=== PATIENT | female | born 1990 | race Two or more races ===

== ENCOUNTER → 2017-02-20 | Outpatient (CLI) | payer OTHER ==
[~2017-02-20] VITALS: Ht 152.4 cm; Wt 66.7 kg
[~2017-02-20] MED LIST: CEFADROXIL500 MG PO; PROTONIX40 MG; PROTONIX40 MG PO
== END | disposition home or self-care (01) ==
LOC: PPHC 12:43
DX: K29.60 Other gastritis without bleeding (principal)

== ENCOUNTER 2017-02-25 08:47 | Outpatient (CLI) | payer OTHER | END 2017-02-25 08:53 | disposition home or self-care (01) | LOC: SONOGRAMA 08:47 | DX: N83.209 Unspecified ovarian cyst, unspecified side (principal) ==

== ENCOUNTER → 2017-03-04 17:36 | Outpatient (CLI) | payer OTHER | END | disposition home or self-care (01) | LOC: ADM 13:15 → RAD 13:15 | DX: M99.01 Segmental and somatic dysfunction of cervical region (principal); M99.03 Segmental and somatic dysfunction of lumbar region; M99.04 Segmental and somatic dysfunction of sacral region ==

== ENCOUNTER → 2017-04-21 | Outpatient (CLI) | payer OTHER ==
[~2017-04-21] VITALS: Ht 152.4 cm; Wt 68.0 kg
== END | disposition home or self-care (01) ==
LOC: PPHC 10:25
DX: K21.9 Gastro-esophageal reflux disease without esophagitis (principal)

== ENCOUNTER → 2017-05-05 | Outpatient (CLI) | payer OTHER ==
[~2017-05-05] VITALS: Ht 152.4 cm; Wt 68.9 kg
== END | disposition home or self-care (01) ==
LOC: PPHC 09:56
DX: R06.02 Shortness of breath (principal)

== ENCOUNTER → 2017-05-07 07:59 | Outpatient (CLI) | payer OTHER | END | disposition home or self-care (01) | LOC: ADM 07:00 → RAD 07:00 | DX: R05 Cough (principal) ==

== ENCOUNTER → 2017-05-07 08:07 | Outpatient (CLI) | payer OTHER | END | disposition home or self-care (01) | LOC: LAB 08:07 → ADM 14:30 | DX: M81.0 Age-related osteoporosis without current pathological fracture (principal); E03.8 Other specified hypothyroidism; D63.8 Anemia in other chronic diseases classified elsewhere; N30.90 Cystitis, unspecified without hematuria; E78.00 Pure hypercholesterolemia, unspecified; R82.79 Other abnormal findings on microbiological examination of urine ==

== ENCOUNTER 2017-05-07 08:18 | Outpatient (CLI) | payer OTHER | END 2017-05-07 08:31 | disposition home or self-care (01) | LOC: SONOGRAMA 08:18 | DX: N60.19 Diffuse cystic mastopathy of unspecified breast (principal) ==

== ENCOUNTER → 2017-05-12 17:59 | Outpatient (CLI) | payer OTHER | END | disposition home or self-care (01) | LOC: LAB 08:45 → ADM 08:45 → LAB 17:59 | DX: E03.8 Other specified hypothyroidism (principal) ==

== ENCOUNTER → 2017-05-12 | Outpatient (CLI) | payer OTHER | END | disposition home or self-care (01) | LOC: PPHC 09:34 | DX: E03.8 Other specified hypothyroidism (principal) ==

== ENCOUNTER → 2017-06-13 | Outpatient (CLI) | payer OTHER | END | disposition home or self-care (01) | LOC: PPHC 11:42 | DX: R30.0 Dysuria (principal) ==

== ENCOUNTER 2017-07-02 09:14 | Outpatient (CLI) | payer OTHER | END 2017-07-02 09:55 | disposition home or self-care (01) | LOC: LAB 09:14 | DX: E05.00 Thyrotoxicosis with diffuse goiter without thyrotoxic crisis or storm (principal) ==

== ENCOUNTER 2017-07-24 11:17 | Outpatient (CLI) | payer OTHER | END 2017-07-24 16:58 | disposition home or self-care (01) | LOC: NUCLEAR 11:17 | DX: E05.00 Thyrotoxicosis with diffuse goiter without thyrotoxic crisis or storm (principal) | CPT/HCPCS: 78012; A9531 ==

== ENCOUNTER → 2017-07-25 | Outpatient (CLI) | payer OTHER | END | disposition home or self-care (01) | LOC: NUCLEAR 12:26 | DX: E05.00 Thyrotoxicosis with diffuse goiter without thyrotoxic crisis or storm (principal) | CPT/HCPCS: 78013; A9512 ==

== ENCOUNTER → 2017-10-17 10:18 | Outpatient (CLI) | payer OTHER | END | disposition home or self-care (01) | LOC: LAB 07:00 → ADM 07:00 → LAB 10:18 | DX: E03.8 Other specified hypothyroidism (principal) ==

== ENCOUNTER → 2017-12-01 09:12 | Outpatient (CLI) | payer OTHER | END | disposition home or self-care (01) | LOC: MEDI 08:53 → EDSTATUS 08:53 → LAB 09:12 | DX: E89.0 Postprocedural hypothyroidism (principal) ==

== ENCOUNTER 2018-03-03 09:00 | Outpatient (CLI) | payer OTHER | END 2018-03-03 19:31 | disposition home or self-care (01) | LOC: LAB 09:00 → ADM 12:00 → LAB 12:00 | DX: E03.8 Other specified hypothyroidism (principal) ==

== ENCOUNTER 2018-05-28 12:20 | Outpatient (CLI) | payer OTHER | END 2018-05-28 12:26 | disposition home or self-care (01) | LOC: SONOGRAMA 12:20 | DX: E04.2 Nontoxic multinodular goiter (principal) ==

== ENCOUNTER 2018-08-03 10:32 | Outpatient (CLI) | payer OTHER | END 2018-08-03 16:14 | disposition home or self-care (01) | LOC: LAB 10:32 | DX: N39.0 Urinary tract infection, site not specified (principal); R31.29 Other microscopic hematuria; E55.9 Vitamin D deficiency, unspecified; E03.0 Congenital hypothyroidism with diffuse goiter ==

== ENCOUNTER → 2018-08-07 14:04 | Outpatient (CLI) | payer OTHER | END | disposition home or self-care (01) | LOC: LAB 14:04 | DX: N30.00 Acute cystitis without hematuria (principal) ==

== ENCOUNTER → 2018-08-10 | Outpatient (CLI) | payer OTHER | END | disposition home or self-care (01) | LOC: SONOGRAMA 12:10 → MAMO-SONO 13:45 | DX: N39.0 Urinary tract infection, site not specified (principal); R31.9 Hematuria, unspecified ==

== ENCOUNTER 2018-11-13 09:29 | Outpatient (CLI) | payer OTHER | END 2018-11-13 14:16 | disposition home or self-care (01) | LOC: LAB 09:29 | DX: E03.8 Other specified hypothyroidism (principal); E55.9 Vitamin D deficiency, unspecified; Z00.00 Encounter for general adult medical examination without abnormal findings; E78.5 Hyperlipidemia, unspecified ==

== ENCOUNTER → 2019-08-21 11:18 | Outpatient (CLI) | payer OTHER | END | disposition home or self-care (01) | LOC: LAB 11:18 | PROVIDERS: ATTEND Internal Medicine Endocrinology, Diabetes & Metabolism | DX: E03.0 Congenital hypothyroidism with diffuse goiter (principal) ==

== ENCOUNTER → 2019-08-25 07:52 | Outpatient (CLI) | payer OTHER | END | disposition home or self-care (01) | LOC: LAB 07:52 | PROVIDERS: ATTEND Internal Medicine Gastroenterology | DX: K59.09 Other constipation (principal); K30 Functional dyspepsia; R11.0 Nausea ==

== ENCOUNTER 2019-08-25 08:41 | Outpatient (CLI) | payer OTHER | END 2019-08-25 09:29 | disposition home or self-care (01) | LOC: SONOGRAMA 08:41 | PROVIDERS: ATTEND Internal Medicine Gastroenterology | DX: K30 Functional dyspepsia (principal); R11.0 Nausea; K59.09 Other constipation ==